=== PATIENT | male | born 1950 | race Caucasian/White ===

== ENCOUNTER 2017-11-26 10:15 | Emergency (ER) | payer OTHER, SELFPAY ==
[~2017-11-26] VITALS: Ht 185.4 cm; Wt 122.0 kg
[~2017-11-26 10:15] MED LIST: AMIT25 PO; AMLO5 PO; ASPI81CH PO; ASPI81EC PO; ATOR20 PO; CALCAVITD PO; CYAN1000 PO; Clindamycin HC300 MG PO; ELIQUIS5 MG PO; FURO40 PO; GLIM2 PO; LAVAP17G PO; LEVSOD137 PO; LIRA0.6P SC; LOSA25 PO; METO25ER PO; NAPR500 PO; OXYC10ER PO; SERT50 PO; SITA100T2 PO; SPIR25 PO; TICA90TA PO; TIOT18 INH; VALS80 PO
[2017-11-26] MEDS ORDERED: JARDIANCE25 MG PO (11:54)
[2017-11-26] MEDS ORDERED: CLOP75 PO (11:56)
[2017-11-26] MEDS ORDERED: STIOLTO RESPIMAT4 GM INH (11:57)
[2017-11-26] MEDS ORDERED: ENTRESTO 24 MG1 EACH PO (11:58)
[2017-11-26] MEDS ORDERED: Norco 10-325 T1 EACH PO (11:59)
[2017-11-26] MEDS ORDERED: B-121000 MC2 (12:00)
[2017-11-26] MEDS ORDERED: METAMUCIL0.4 GM (12:00)
[2017-11-26] MEDS ORDERED: Hair, Skin & N1 EACH PO (12:00)
== END 2017-11-26 13:30 | disposition home or self-care (01) ==
LOC: ER 10:15
DX: R04.0 Epistaxis (principal); Z91.041 Radiographic dye allergy status; Z88.5 Allergy status to narcotic agent; Z88.8 Allergy status to other drugs, medicaments and biological substances; Z79.899 Other long term (current) drug therapy; Z79.82 Long term (current) use of aspirin; I10 Essential (primary) hypertension; J44.9 Chronic obstructive pulmonary disease, unspecified; E11.9 Type 2 diabetes mellitus without complications; I25.2 Old myocardial infarction
CPT/HCPCS: 30901; 99283

== ENCOUNTER 2021-03-02 07:56 | Observation (INO) | payer OTHER ==
[~2021-03-02] VITALS: Ht 182.9 cm; Wt 139.3 kg
[~2021-03-02 07:56] MED LIST changes: +ALBU2.5V5 INH; +B-121000 MC2; +CLOP75 PO; +ENTRESTO 24 MG1 EACH PO; +Hair, Skin & N1 EACH PO; +INSULANI SC; +JARDIANCE25 MG PO; +LEVSOD100 PO; +METAMUCIL0.4 GM; +METF500 PO; +METO25ER; +Norco 10-325 T1 EACH PO; +SITA50T2 PO; +STIOLTO RESPIMAT4 GM INH; +TORSE20 PO; +XARELTO20 MG PO
--- NOTE | 2021-03-02 08:20 | NUR ---
TO RECOVERY ROOM FOR PROCEDURE. SEE ASSESSMENT.
--- NOTE | 2021-03-02 09:21 | NUR ---
TO BATHROOM. SHORT OF BREATH AMBULATING BACK. CBG 283. PT STATED WAS 135 PRIOR TO INSULIN.
--- NOTE | 2021-03-02 09:34 | NUR ---
Dr. See here to discuss procedure with patient. CBG results given to Dr. See.
[2021-03-02] MEDS ORDERED: XARELTO20 MG PO (11:19)
--- NOTE | 2021-03-02 11:20 | NUR ---
TRANSFERRED TO RECOVERY ROOM VIA BED. PT AWAKE AND ALERT.RIGHT RADIAL TR BAND INTACT WITH 12 CC AIR. RIGHT BRACHIAL SITE WITH COBAN NO BLEEDING AT SITE. DENIES CHEST PAIN AT THIS TIME
--- NOTE | 2021-03-02 14:29 | NUR ---
TO BATHROOM. PT IS SHORT OF BREATH WITH AMBULATION AND WHEEZY. INHALER TAKEN
--- NOTE | 2021-03-02 14:32 | NUR ---
PT C/O OF INTERMITTENT LEFT ARM PAIN ALSO MENTIONED THAT HE HAS SOME JAW PAIN ASSOCIATED WITH THE LEFT ARM PAIN. CURRENTLY PAINFREE.
--- NOTE | 2021-03-02 14:43 | NUR ---
COBAN REMOVED FROM RIGHT BRACHAIL ACCESS. MORENO WITH SMALL AMOUNT OLD BLOOD ON SITE.
--- NOTE | 2021-03-02 15:08 | NUR ---
2 CC AIR REMOVED FROM TR BAND. NO BLEEDING AT SITE.
--- NOTE | 2021-03-02 15:16 | NUR ---
REMAINDER OF AIR REMOVED SLOWLY. SCANT BLEEDING AT SITE. 4 CC AIR INSTILLED. BLEEDING SUBSIDED.
--- NOTE | 2021-03-02 15:20 | NUR ---
TRANSFERRED TO [facility]-2 VIA WHEELCHAIR.
--- NOTE | 2021-03-02 15:30 | NUR ---
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 stable, afebile, iv site to lfa site is clear and patent, infusing ns @125hr, btx4, abd flat soft nontender, voids without diff, skin has tr band site to right wrist, site is clear, almost completley deflated, arm board in place, sarah, elliot, call light in reach.
--- NOTE | 2021-03-02 15:30 | NUR ---
TO PCU-2 VIA WHEELCHAIR. REPORT GIVEN TO SALONI BASS RN. TR BAND WITH 4 CC AIR. IV INFUSING AT 125 CC/HR.
[2021-03-02 15:59] LABS: CHOL/HDL RATIO 2.4; Cholesterol 145 mg/dL (50-200); HDL Cholesterol 61 mg/dL (>39); LDL/HDL RATIO 1.1; Low Density Lipoprotein Chol 66 mg/dL (0-110); Triglycerides 88 mg/dL (30-160); Troponin I 0.286 ng/mL (0.000-0.040); Very Low Density Lipoprot Chol 17 mg/dL (6-32)
[2021-03-02] MEDS ORDERED: 1/2 NS 250ml250 ML (16:11)
[2021-03-02] MEDS ORDERED: HYDACE10B PO (16:11)
--- NOTE | 2021-03-02 18:57 | NUR ---
tr band is off with occlusive dressing in place, arm board in place, no further changes this shift. call light in reach.
[2021-03-03 02:39] LABS: Anion Gap 5 mmol/L (6-16); BASOPHILS ABSOLUTE AUTO 0.03 K/mm3 (0.00-0.23); BASOPHILS PERCENT AUTO 0 % (0-2); Blood Urea Nitrogen 19 mg/dL (8-24); Bun/Creatinine Ratio 30.9 (12.0-20.0); CO2, Blood 26 mmol/L (21-32); Calcium, Blood 9.7 mg/dL (8.5-10.1); Chloride, Blood 109 mmol/L (98-108); Creatinine, Blood 0.62 mg/dL (0.60-1.20); EOSINOPHILS ABSOLUTE AUTO 0.08 K/mm3 (0.00-0.68); EOSINOPHILS PERCENT AUTO 1 % (0-6); Glomerular Filtration Rate >60 (60-); Glucose, Blood 170 mg/dL (70-99); Hematocrit 43.6 % (37.0-53.0); Hemoglobin 13.8 g/dL (13.5-17.5); IMMATURE GRAN ABSOLUTE AUTO 0.06 K/mm3 (0.00-0.10); IMMATURE GRAN PERCENT AUTO 0 % (0-1); LYMPHOCYTES ABSOLUTE AUTO 2.45 K/mm3 (0.84-5.20); LYMPHOCYTES PERCENT AUTO 17 % (21-46); MONOCYTES ABSOLUTE AUTO 0.84 K/mm3 (0.16-1.47); MONOCYTES PERCENT AUTO 6 % (4-13); Mean Corpuscular HGB 26.4 pg (26.0-34.0); Mean Corpuscular HGB Conc 31.7 g/dL (31.5-36.5); Mean Corpuscular Volume 84 fL (80-100); Mean Platelet Volume 10.8 fL (9.1-12.4); NEUTROPHILS ABSOLUTE AUTO 11.15 K/mm3 (1.96-9.15); NEUTROPHILS PERCENT AUTO 76 % (41-73); Platelet Count 326 K/mm3 (150-400); RDW Coefficient Variation 14.9 % (11.7-14.2); RDW Standard Deviation 44.9 fL (35.1-46.3); Red Blood Cell Count 5.22 M/mm3 (4.30-5.90); Sodium, Blood 140 mmol/L (136-145); White Blood Cell Count 14.61 K/mm3 (4.00-11.30)
--- NOTE | 2021-03-03 05:06 | NUR ---
SHIFT SUMMARY THIS RN ASSUMED CARE OF PT FROM MINOR RN. PT HAS BEEN SLEEPING OFF AND ON SINCE THIS RN TOOK OVER CARE. PT AWOKE AND HAD C/O PAIN IN HIS BACK BUT DENIED ANY CP OR PRESSURE. TROPONIN OF 6.47 THIS AM AND WAS DISCUSSED WITH STRINGED INSTRUMENT TUNER LUDWIN. PT MEDICATED PER EMAR FOR BACK PAIN AND DENIED ANY FURTHER NEEDS AT THIS TIME. WILL REPORT TO ONCOMING RN.
[2021-03-03] MEDS ORDERED: CLOP75 PO (09:39)
--- NOTE | 2021-03-03 10:51 | NUR ---
DISCHARGE PT PROVIDED WITH WRITTEN AND VERBAL DISCHARGE INSTRUCTIONS, PT AND SPOUSE REPORTED UNDERSTANDING. PT PROVIDED WITH A SLING AND ASSISTED TO PUT IN PLACE. PT COMPLAINED OF 7/10 CHRONIC BACK PAIN BEFORE DISCHARGE, NORCO GIVEN PRIOR TO DISCHARGE. PT ALERT, ORIENTED AND PLEASANT AT TIME OF DISCHARGE. PT ASSISTED OUT IN W/C BY HAJA RIOS.
== END 2021-03-03 10:45 | disposition home or self-care (01) ==
LOC: MHTC 07:56 → PCU 07:56 → MHTC 07:57 → PCU 12:19 → MHTC 15:21 → PCU 15:21
PROVIDERS: Internal Medicine Cardiovascular Disease; ADMIT Internal Medicine Cardiovascular Disease
DX: I35.0 Nonrheumatic aortic (valve) stenosis (principal); I25.10 Atherosclerotic heart disease of native coronary artery without angina pectoris; E11.9 Type 2 diabetes mellitus without complications; E78.5 Hyperlipidemia, unspecified; I11.0 Hypertensive heart disease with heart failure; I50.9 Heart failure, unspecified; J44.9 Chronic obstructive pulmonary disease, unspecified; I48.19 Other persistent atrial fibrillation; E03.9 Hypothyroidism, unspecified; E66.01 Morbid (severe) obesity due to excess calories; Z68.41 Body mass index [BMI] 40.0-44.9, adult; Z79.4 Long term (current) use of insulin; Z79.01 Long term (current) use of anticoagulants; Z87.891 Personal history of nicotine dependence; Z88.5 Allergy status to narcotic agent; Z88.8 Allergy status to other drugs, medicaments and biological substances; Z91.048 Other nonmedicinal substance allergy status
CPT/HCPCS: 36415; 76937; 80048; 80061; 82947; 84484; 85025; 85347; 93005; 93010; 93456; 93571; 94760; 99152; 99153; A9270; C1725; C1769; C1874; C1887; C1894; C9600; G0378; J1200; J1720; J1815; J2250; J3010; J7030; J7050; Q9967

== ENCOUNTER → 2024-01-08 | Outpatient (CLI) | payer OTHER ==
[~2024-01-08] MED LIST changes: +1/2 NS 250ml250 ML; +HYDACE10B PO
== END ==
LOC: LAB 08:33 → LAB SHORT 08:33
DX: L97.509 Non-pressure chronic ulcer of other part of unspecified foot with unspecified severity (principal)
CPT/HCPCS: 87070; 87075; 87205

== ENCOUNTER 2024-02-29 17:26 | Emergency (ER) | payer OTHER ==
[~2024-02-29] VITALS: Ht 182.9 cm; Wt 129.3 kg
[2024-02-29 17:57] LABS: BASOPHILS ABSOLUTE AUTO 0.03 K/mm3 (0.00-0.23); BASOPHILS PERCENT AUTO 0 % (0-2); EOSINOPHILS ABSOLUTE AUTO 0.36 K/mm3 (0.00-0.68); EOSINOPHILS PERCENT AUTO 4 % (0-6); Hematocrit 44.9 % (37.0-53.0); Hemoglobin 14.2 g/dL (13.5-17.5); IMMATURE GRAN ABSOLUTE AUTO 0.03 K/mm3 (0.00-0.10); IMMATURE GRAN PERCENT AUTO 0 % (0-1); LYMPHOCYTES ABSOLUTE AUTO 1.98 K/mm3 (0.84-5.20); LYMPHOCYTES PERCENT AUTO 22 % (21-46); MONOCYTES ABSOLUTE AUTO 0.55 K/mm3 (0.16-1.47); MONOCYTES PERCENT AUTO 6 % (4-13); Mean Corpuscular HGB 26.4 pg (26.0-34.0); Mean Corpuscular HGB Conc 31.6 g/dL (31.5-36.5); Mean Corpuscular Volume 84 fL (80-100); Mean Platelet Volume 10.3 fL (9.1-12.4); NEUTROPHILS PERCENT AUTO 67 % (41-73); Platelet Count 275 K/mm3 (150-400); RDW Coefficient Variation 18.1 % (11.7-14.2); Red Blood Cell Count 5.38 M/mm3 (4.30-5.90); White Blood Cell Count 8.95 K/mm3 (4.00-11.30)
[2024-02-29 18:15] LABS: Albumin, Blood 3.4 g/dL (3.4-5.0); Albumin/Globulin Ratio 0.9 (0.8-1.8); Bilirubin, Total 0.4 mg/dL (0.1-1.0); Bun/Creatinine Ratio 16.8 (12.0-20.0); Calcium, Blood 9.7 mg/dL (8.5-10.1); Creatinine, Blood 0.96 mg/dL (0.60-1.20); Globulin, Blood 3.6 g/dL (2.2-4.0); Potassium, Blood 4.2 mmol/L (3.5-5.5)
[2024-02-29 21:00] VITALS: BP 139/70
== END 2024-02-29 21:13 | disposition home or self-care (01) ==
LOC: ER 17:26
PROVIDERS: Emergency Medicine
DX: R07.9 Chest pain, unspecified (principal); J44.9 Chronic obstructive pulmonary disease, unspecified; I25.2 Old myocardial infarction; I48.91 Unspecified atrial fibrillation; E03.9 Hypothyroidism, unspecified; I10 Essential (primary) hypertension; Z79.02 Long term (current) use of antithrombotics/antiplatelets; Z79.899 Other long term (current) drug therapy; Z79.84 Long term (current) use of oral hypoglycemic drugs; Z79.4 Long term (current) use of insulin; Z88.5 Allergy status to narcotic agent; Z91.018 Allergy to other foods; Z88.8 Allergy status to other drugs, medicaments and biological substances
CPT/HCPCS: 71046; 80053; 84484; 85025; 93005; 93010; 99285-25